=== PATIENT | male | born 1960 | race Caucasian/White ===

== ENCOUNTER 2017-01-04 19:16 | Emergency (ER) | payer OTHER ==
[~2017-01-04] VITALS: Ht 177.8 cm; Wt 82.9 kg
[~2017-01-04 19:16] MED LIST: GABAPENTIN100 MG PO; LORATADINE10 M2 PO; SIMVASTATIN20 MG PO; TRAZODONE HCL50 MG PO; WELLBUTRIN100 MG PO
[2017-01-04 19:43] LABS: BASOPHIL COUNT 0.1 K/uL (0-0.1); EOSINOPHIL (%) 4.1 % (0-5); EOSINOPHIL COUNT 0.4 K/uL (0-0.3); HEMATOCRIT 45.3 % (38.0-50.0); IMMATURE GRANULOCYTE (%) 0.3 % (0.0-0.7); INSTRUMENT ABS NEUTROPHIL CT 3.5 K/uL; LYMPHOCYTE COUNT 3.9 K/uL (1.0-2.8); MCH 32.2 PG (29.0-34.0); MCV 94.6 FL (86-99); MEAN PLAT.VOLUME 8.6 uM^3 (9.0-12.4); MONOCYTE (%) 8.9 % (3-12); MONOCYTE COUNT 0.8 K/uL (0-0.8); NEUTROPHIL (%) 40.9 % (45-76); NEUTROPHIL COUNT 3.5 K/uL (1.8-6.4); PLATELET COUNT 415 K/uL (156-360); RBC DIS.WIDTH-CV 12.8 % (11.8-14.6); RBC DIS.WIDTH-SD 44.8 % (39-53); RED BLOOD COUNT 4.79 M/uL (4.00-5.50); WHITE BLOOD COUNT 8.6 K/uL (4.1-10.2)
[2017-01-04 20:07] LABS: CHLORIDE 103 mEq/L (99-109); POTASSIUM 3.9 mEq/L (3.7-5.4); SODIUM 144 mEq/L (136-147)
[2017-01-04 20:08] LABS: AMYLASE 56 IU/L (1-118)
[2017-01-04 20:10] LABS: GLUCOSE 120 mg/dL (70-99)
[2017-01-04 20:11] LABS: ANION GAP 19 MEQ/L (2-14); TOTAL BILIRUBIN 0.4 mg/dL (0.0-1.0)
[2017-01-04 20:12] LABS: SERUM ETHYL ALCOHOL 329 mg/dL
[2017-01-04 20:13] LABS: ALKALINE PHOSPHATASE 87 IU/L (3-129); GFR ESTIMATE (CALCULATED) > 59 mL/min/
[2017-01-04 20:14] LABS: UREA NITROGEN (BUN) 6 mg/dL (9-23)
[2017-01-04 20:17] LABS: LIPASE 84 U/L (1.0-51.0)
[2017-01-05 05:52] VITALS: BP 124/89
== END 2017-01-05 06:00 | disposition home or self-care (01) ==
LOC: EME → EDBD 19:16 → EME 01-05 06:00
PROVIDERS: Emergency Medicine
PROC: 0HQEXZZ Repair Left Lower Arm Skin, External Approach (ICD-10-PCS; principal; 2017-01-04)
DX: S61.512A Laceration without foreign body of left wrist, initial encounter (principal); R51 Headache; M54.2 Cervicalgia; Y04.8XXA Assault by other bodily force, initial encounter; W10.9XXA Fall (on) (from) unspecified stairs and steps, initial encounter; F10.129 Alcohol abuse with intoxication, unspecified; R20.2 Paresthesia of skin; F17.200 Nicotine dependence, unspecified, uncomplicated; I25.2 Old myocardial infarction
CPT/HCPCS: 70450; 71010; 72125; 73100; 73120; 80053; 81003; 82150; 83690; 85025; 99281; 99285; G0480; J1630; J2060; J7030

== ENCOUNTER 2017-01-11 13:53 | Inpatient (IN) | payer OTHER ==
[~2017-01-11] VITALS: Ht 172.7 cm; Wt 84.0 kg
[2017-01-11 14:37] LABS: HEMATOCRIT 44.9 % (38.0-50.0); MCH 32.2 PG (29.0-34.0); MCHC 34.3 G/DL (30.0-36.0); MCV 93.9 FL (86-99); MEAN PLAT.VOLUME 8.7 uM^3 (9.0-12.4); PLATELET COUNT 337 K/uL (156-360); RBC DIS.WIDTH-CV 12.8 % (11.8-14.6); RBC DIS.WIDTH-SD 44.5 % (39-53); RED BLOOD COUNT 4.78 M/uL (4.00-5.50); WHITE BLOOD COUNT 14.3 K/uL (4.1-10.2)
[2017-01-11 14:46] LABS: CHLORIDE 98 mEq/L (99-109); POTASSIUM 3.2 mEq/L (3.7-5.4); SODIUM 141 mEq/L (136-147)
[2017-01-11 14:48] LABS: GLUCOSE 150 mg/dL (70-99)
[2017-01-11 14:49] LABS: ANION GAP 19 MEQ/L (2-14)
[2017-01-11 14:50] LABS: TOTAL BILIRUBIN 0.7 mg/dL (0.0-1.0)
[2017-01-11 14:51] LABS: ALKALINE PHOSPHATASE 80 IU/L (3-129)
[2017-01-11 14:52] LABS: GFR ESTIMATE (CALCULATED) > 59 mL/min/
[2017-01-11 14:53] LABS: UREA NITROGEN (BUN) 11 mg/dL (9-23)
[2017-01-11 14:55] LABS: LIPASE 863 U/L (1.0-51.0)
[2017-01-11 14:58] LABS: TROP-I INTERPRETATION NEGATIVE; TROPONIN-I 0.01 ng/mL (0.0-0.30)
[2017-01-11] MEDS ORDERED: ADVIL200 MG PO (17:04)
[2017-01-11] MEDS ORDERED: NEXIUM 24HR20 MG PO (17:05)
[2017-01-11] MEDS ORDERED: GAVISCON LIQUI355 ML PO (17:05)
[2017-01-11 17:35] LABS: ADD MIUA? NO; BILIRUBIN NEGATIVE; BLOOD NEGATIVE; COLOR YELLOW ((YELLOW)); GLUCOSE (STRIP) NEGATIVE; KETONES 20; LEUKOCYTES NEGATIVE; NITRITE NEGATIVE; PROTEIN (STRIP) 30; UCUL ADDED? NO
[2017-01-11 17:42] LABS: MAGNESIUM 2.1 mg/dL (1.3-2.7)
[2017-01-11 20:29] VITALS: BP 159/99
[2017-01-11 23:05] VITALS: BP 152/96
[2017-01-12] VITALS (7 sets, daily range): BP systolic 124–145; BP diastolic 81–94
[2017-01-12 06:40] LABS: HEMATOCRIT 39.8 % (38.0-50.0); MCHC 32.9 G/DL (30.0-36.0); MCV 97.1 FL (86-99); MEAN PLAT.VOLUME 8.7 uM^3 (9.0-12.4); PLATELET COUNT 296 K/uL (156-360); RBC DIS.WIDTH-CV 13.2 % (11.8-14.6); RBC DIS.WIDTH-SD 47.5 % (39-53); WHITE BLOOD COUNT 10.3 K/uL (4.1-10.2)
[2017-01-12 07:02] LABS: ALKALINE PHOSPHATASE 57 IU/L (3-129); ANION GAP 9 MEQ/L (2-14); CHLORIDE 104 MEQ/L (99-109); GFR ESTIMATE (CALCULATED) > 59 mL/min/; GLUCOSE 138 mg/dL (70-99); POTASSIUM 3.7 MEQ/L (3.7-5.4); SAMPLE HEMOLYSIS CHECK 0; SAMPLE ICTERIC CHECK 0; SAMPLE LIPEMIA CHECK 0; SODIUM 139 MEQ/L (136-147); UREA NITROGEN (BUN) 8 mg/dL (9-23)
[2017-01-13 06:42] LABS: HEMATOCRIT 38.5 % (38.0-50.0); MCH 32.7 PG (29.0-34.0); MCHC 33.2 G/DL (30.0-36.0); MCV 98.2 FL (86-99); PLATELET COUNT 244 K/uL (156-360); RBC DIS.WIDTH-CV 13.2 % (11.8-14.6); RBC DIS.WIDTH-SD 46.8 % (39-53); RED BLOOD COUNT 3.92 M/uL (4.00-5.50); WHITE BLOOD COUNT 12.2 K/uL (4.1-10.2)
[2017-01-13 07:09] LABS: ALKALINE PHOSPHATASE 56 IU/L (3-129); ANION GAP 10 MEQ/L (2-14); CHLORIDE 105 MEQ/L (99-109); GFR ESTIMATE (CALCULATED) > 59 mL/min/; GLUCOSE 132 mg/dL (70-99); POTASSIUM 3.9 MEQ/L (3.7-5.4); SAMPLE HEMOLYSIS CHECK 0; SAMPLE ICTERIC CHECK 0; SAMPLE LIPEMIA CHECK 0; SODIUM 138 MEQ/L (136-147); TOTAL BILIRUBIN 1.2 MG/DL (0.0-1.0); UREA NITROGEN (BUN) 5 mg/dL (9-23)
[2017-01-13 07:15] VITALS: BP 143/87
[2017-01-13 11:36] VITALS: BP 141/80
[2017-01-13 15:58] VITALS: BP 140/94
[2017-01-13 20:05] VITALS: BP 144/85
[2017-01-13 23:45] VITALS: BP 125/77
[2017-01-14 07:00] LABS: HEMATOCRIT 35.9 % (38.0-50.0); MCH 32.3 PG (29.0-34.0); MCHC 33.1 G/DL (30.0-36.0); MCV 97.6 FL (86-99); PLATELET COUNT 261 K/uL (156-360); RBC DIS.WIDTH-SD 46.4 % (39-53); RED BLOOD COUNT 3.68 M/uL (4.00-5.50); WHITE BLOOD COUNT 11.8 K/uL (4.1-10.2)
[2017-01-14 07:29] LABS: ALKALINE PHOSPHATASE 56 IU/L (3-129); ANION GAP 7 MEQ/L (2-14); CHLORIDE 107 MEQ/L (99-109); GFR ESTIMATE (CALCULATED) > 59 mL/min/; GLUCOSE 117 mg/dL (70-99); MAGNESIUM 2.1 mg/dl (1.3-2.7); POTASSIUM 3.8 MEQ/L (3.7-5.4); SAMPLE HEMOLYSIS CHECK 0; SAMPLE ICTERIC CHECK 0; SAMPLE LIPEMIA CHECK 0; SODIUM 138 MEQ/L (136-147); UREA NITROGEN (BUN) 5 mg/dL (9-23)
[2017-01-14 07:43] VITALS: BP 136/85
[2017-01-14 16:11] VITALS: BP 137/88
[2017-01-14 22:56] VITALS: BP 124/82
[2017-01-15 06:02] LABS: EOSINOPHIL COUNT 0.6 K/uL (0-0.3); HEMATOCRIT 36.3 % (38.0-50.0); IMMATURE GRANULOCYTE (%) 0.9 % (0.0-0.7); IMMATURE GRANULOCYTE COUNT 0.1 K/uL; INSTRUMENT ABS NEUTROPHIL CT 6.9 K/uL; LYMPHOCYTE COUNT 2.6 K/uL (1.0-2.8); MCH 33.7 PG (29.0-34.0); MCHC 34.4 G/DL (30.0-36.0); MCV 97.8 FL (86-99); MEAN PLAT.VOLUME 8.9 uM^3 (9.0-12.4); MONOCYTE (%) 11.5 % (3-12); MONOCYTE COUNT 1.3 K/uL (0-0.8); NEUTROPHIL (%) 59.8 % (45-76); NEUTROPHIL COUNT 6.9 K/uL (1.8-6.4); PLATELET COUNT 301 K/uL (156-360); RBC DIS.WIDTH-SD 46.8 % (39-53); RED BLOOD COUNT 3.71 M/uL (4.00-5.50); WHITE BLOOD COUNT 11.6 K/uL (4.1-10.2)
[2017-01-15 06:27] LABS: ANION GAP 8 MEQ/L (2-14); CHLORIDE 107 MEQ/L (99-109); GFR ESTIMATE (CALCULATED) > 59 mL/min/; GLUCOSE 112 mg/dL (70-99); POTASSIUM 4.2 MEQ/L (3.7-5.4); SAMPLE HEMOLYSIS CHECK 0; SAMPLE ICTERIC CHECK 0; SAMPLE LIPEMIA CHECK 0; SODIUM 139 MEQ/L (136-147); UREA NITROGEN (BUN) 6 mg/dL (9-23)
[2017-01-15 08:00] VITALS: BP 129/79
[2017-01-15] MEDS ORDERED: NICOTINE PATCH1 EAC2 TD (15:08)
[2017-01-15] MEDS ORDERED: FOLIC ACID1 MG PO (15:08)
[2017-01-15] MEDS ORDERED: MULTIVITAMIN1 EAC2 PO (15:09)
[2017-01-15] MEDS ORDERED: LIBRIUM25 MG PO (15:11)
[2017-01-15 15:46] VITALS: BP 115/77
== END 2017-01-15 17:40 | disposition home or self-care (01) | DRG 439 ==
LOC: EME 13:53 → 5EAST 16:35 → EDOF 16:35 → ENRESERV 16:39 → 5EAST 19:59
PROVIDERS: Internal Medicine; Nurse Practitioner Family; Student in an Organized Health Care Education/Training Program
DX: K85.20 Alcohol induced acute pancreatitis without necrosis or infection (principal); F17.200 Nicotine dependence, unspecified, uncomplicated; F10.230 Alcohol dependence with withdrawal, uncomplicated; E87.6 Hypokalemia; I10 Essential (primary) hypertension; M19.90 Unspecified osteoarthritis, unspecified site; F14.10 Cocaine abuse, uncomplicated; K76.0 Fatty (change of) liver, not elsewhere classified; R16.0 Hepatomegaly, not elsewhere classified
CPT/HCPCS: 74177; 80048; 80053; 81003; 82140; 82272; 83605; 83690; 83735; 84484; 85025; 85027; 87040; 93005; 99281; 99282; C9113; J1170; J2270; J2405; J3010; J3411; J7030

== ENCOUNTER → 2017-03-19 | Outpatient (CLI) | payer OTHER ==
[~2017-03-19] MED LIST changes: +ADVIL200 MG PO; +FOLIC ACID1 MG PO; +GAVISCON LIQUI355 ML PO; +LIBRIUM25 MG PO; +MULTIVITAMIN1 EAC2 PO; +NEXIUM 24HR20 MG PO; +NICOTINE PATCH1 EAC2 TD
== END | disposition home or self-care (01) ==
LOC: RAD 09:04
DX: Z02.71 Encounter for disability determination (principal); M16.0 Bilateral primary osteoarthritis of hip; M25.752 Osteophyte, left hip; M47.898 Other spondylosis, sacral and sacrococcygeal region
CPT/HCPCS: 73501

== ENCOUNTER 2017-07-04 10:04 | Inpatient (IN) | payer OTHER ==
[~2017-07-04] VITALS: Ht 172.7 cm; Wt 82.3 kg
[2017-07-04 11:39] LABS: HEMATOCRIT 49.1 % (38.0-50.0); HEMOGLOBIN 17.4 G/DL (12.5-16.6); MCH 34.9 PG (29.0-34.0); MCHC 35.4 G/DL (30.0-36.0); MCV 98.6 FL (86-99); PLATELET COUNT 318 K/uL (156-360); RBC DIS.WIDTH-CV 14.9 % (11.8-14.6); RBC DIS.WIDTH-SD 54.4 % (39-53); RED BLOOD COUNT 4.98 M/uL (4.00-5.50); WHITE BLOOD COUNT 14.6 K/uL (4.1-10.2)
[2017-07-04 11:47] LABS: ALBUMIN 4.1 g/dL (3.2-4.8); CHLORIDE 107 mEq/L (99-109); POTASSIUM 3.8 mEq/L (3.7-5.4); SODIUM 141 mEq/L (136-147)
[2017-07-04 11:49] LABS: GLUCOSE 161 mg/dL (70-99)
[2017-07-04 11:50] LABS: TOTAL PROTEIN 7.8 g/dL (6.4-8.3)
[2017-07-04 11:51] LABS: TOTAL BILIRUBIN 0.7 mg/dL (0.0-1.0)
[2017-07-04 11:52] LABS: SERUM ETHYL ALCOHOL 93 mg/dL
[2017-07-04 11:53] LABS: ALKALINE PHOSPHATASE 106 IU/L (3-129); CREATININE 0.7 mg/dL (0.6-1.3); GFR ESTIMATE (CALCULATED) > 59 mL/min/ (58.99-99999)
[2017-07-04 11:54] LABS: UREA NITROGEN (BUN) 6 mg/dL (9-23)
[2017-07-04 11:55] LABS: AST (GOT) 168 IU/L (2-34); DIRECT BILIRUBIN 0.4 mg/dL (0.0-0.3)
[2017-07-04 11:56] LABS: ALT (GPT) 108 IU/L (3-49)
[2017-07-04 11:57] LABS: LIPASE 862 U/L (1.0-51.0)
[2017-07-04] MEDS ORDERED: ZANTAC150 MG PO (14:08)
[2017-07-04] MEDS ORDERED: ADVIL PM1 TABLET PO (14:08)
[2017-07-04 14:53] LABS: MAGNESIUM 1.9 mg/dL (1.3-2.7)
[2017-07-04 17:10] LABS: APPEARANCE CLEAR ((CLEAR)); BILIRUBIN NEGATIVE; BLOOD NEGATIVE; COLOR YELLOW ((YELLOW)); GLUCOSE (STRIP) NEGATIVE; KETONES 20; LEUKOCYTES NEGATIVE; NITRITE NEGATIVE; PROTEIN (STRIP) NEGATIVE; UCUL ADDED? NO; UROBILINOGEN 0.2 MG/DL (0.2-1.0)
[2017-07-04 17:38] LABS: SPECIFIC GRAVITY 1.054 (1.000-1.030)
[2017-07-04 22:21] VITALS: BP 160/92
[2017-07-04 23:47] VITALS: BP 160/95
[2017-07-05 04:05] VITALS: BP 163/95
[2017-07-05 06:00] LABS: HEMATOCRIT 43.1 % (38.0-50.0); MCH 33.7 PG (29.0-34.0); MCHC 33.6 G/DL (30.0-36.0); MCV 100.2 FL (86-99); PLATELET COUNT 234 K/uL (156-360); RBC DIS.WIDTH-CV 15.1 % (11.8-14.6); RBC DIS.WIDTH-SD 56.1 % (39-53); WHITE BLOOD COUNT 14.1 K/uL (4.1-10.2)
[2017-07-05 06:02] LABS: HEMOGLOBIN 14.5 G/DL (12.5-16.6)
[2017-07-05 06:30] LABS: CHLORIDE 107 MEQ/L (99-109); CREATININE 0.5 MG/DL (0.6-1.3); GFR ESTIMATE (CALCULATED) > 59 mL/min/ (58.99-99999); GLUCOSE 133 mg/dL (70-99); POTASSIUM 3.4 MEQ/L (3.7-5.4); SODIUM 142 MEQ/L (136-147); UREA NITROGEN (BUN) 5 mg/dL (9-23)
[2017-07-05 07:16] VITALS: BP 144/99; BP 148/99; BP 157/100
[2017-07-05 10:01] LABS: ALBUMIN 3.1 G/DL (3.2-4.8); ALKALINE PHOSPHATASE 72 IU/L (3-129); ALT (GPT) 54 IU/L (3-49); AST (GOT) 57 IU/L (2-34); DIRECT BILIRUBIN 0.4 mg/dL (0.0-0.3); LIPASE 776 U/L (1.0-51.0); TOTAL PROTEIN 5.9 G/DL (6.4-8.3)
[2017-07-05 11:51] VITALS: BP 146/93
[2017-07-05 15:25] VITALS: BP 150/92
[2017-07-05 19:09] VITALS: BP 149/86
[2017-07-05 23:14] VITALS: BP 133/76
[2017-07-06 03:41] VITALS: BP 135/82
[2017-07-06 07:39] LABS: ALBUMIN 3.1 G/DL (3.2-4.8); ALKALINE PHOSPHATASE 75 IU/L (3-129); ALT (GPT) 38 IU/L (3-49); CHLORIDE 103 MEQ/L (99-109); CREATININE 0.6 MG/DL (0.6-1.3); GFR ESTIMATE (CALCULATED) > 59 mL/min/ (58.99-99999); GLUCOSE 118 mg/dL (70-99); POTASSIUM 3.3 MEQ/L (3.7-5.4); SODIUM 138 MEQ/L (136-147); UREA NITROGEN (BUN) 4 mg/dL (9-23)
[2017-07-06 07:48] LABS: AST (GOT) 28 IU/L (2-34); TOTAL BILIRUBIN 1.9 MG/DL (0.0-1.0)
[2017-07-06 07:57] VITALS: BP 163/97
[2017-07-06 11:54] VITALS: BP 148/96
[2017-07-06 15:36] VITALS: BP 143/95
== END 2017-07-06 19:59 | disposition left against medical advice (07) | DRG 439 ==
LOC: EME 10:04 → 3EAST 13:28 → EDOF 13:28 → ENRESERV 13:36 → CANRESERV 14:38 → ENRESERV 16:45 → 3EAST 21:47
PROVIDERS: Family Medicine; Internal Medicine
DX: K85.20 Alcohol induced acute pancreatitis without necrosis or infection (principal); E87.2 Acidosis; F10.229 Alcohol dependence with intoxication, unspecified; K76.9 Liver disease, unspecified; F17.210 Nicotine dependence, cigarettes, uncomplicated; I10 Essential (primary) hypertension; E87.6 Hypokalemia; K21.9 Gastro-esophageal reflux disease without esophagitis; I25.2 Old myocardial infarction; G89.29 Other chronic pain; E86.0 Dehydration
CPT/HCPCS: 74177; 76705; 80048; 80053; 80076; 81003; 82248; 83690; 83735; 85027; 99281; 99285; C9113; G0480; J1650; J2060; J2270; J2405; J2765; J3411; J7030; J7042

== ENCOUNTER 2017-12-15 08:15 | Inpatient (IN) | payer OTHER ==
[~2017-12-15] VITALS: Ht 172.7 cm; Wt 82.7 kg
[~2017-12-15 08:15] MED LIST changes: +TYLENOL PM EX-1 EACH PO; +ZANTAC150 MG PO
[2017-12-15 09:01] LABS: HEMATOCRIT 46.3 % (38.0-50.0); HEMOGLOBIN 16.5 G/DL (12.5-16.6); MCHC 35.6 G/DL (30.0-36.0); MCV 98.3 FL (86-99); PLATELET COUNT 362 K/uL (156-360); RBC DIS.WIDTH-SD 47.6 % (39-53); RED BLOOD COUNT 4.71 M/uL (4.00-5.50); WHITE BLOOD COUNT 11.2 K/uL (4.1-10.2)
[2017-12-15 09:41] LABS: ALBUMIN 3.9 G/DL (3.2-4.8); ALKALINE PHOSPHATASE 77 IU/L (3-129); ALT (GPT) 49 IU/L (3-49); AST (GOT) 77 IU/L (2-34); CHLORIDE 104 MEQ/L (99-109); CREATININE 0.6 MG/DL (0.6-1.3); GFR ESTIMATE (CALCULATED) > 59 mL/min/ (58.99-99999); GLUCOSE 149 mg/dL (70-99); LIPASE 1005 U/L (1.0-51.0); POTASSIUM 3.7 MEQ/L (3.7-5.4); SODIUM 141 MEQ/L (136-147); TOTAL BILIRUBIN 0.5 MG/DL (0.0-1.0); TOTAL PROTEIN 7.3 G/DL (6.4-8.3); UREA NITROGEN (BUN) 10 mg/dL (9-23)
[2017-12-15] MEDS ORDERED: ADVIL200 MG PO (10:32)
[2017-12-15] MEDS ORDERED: TYLENOL REGULA325 MG PO (10:32)
[2017-12-15 11:50] VITALS: BP 136/83
[2017-12-15 12:01] LABS: MAGNESIUM 1.8 mg/dl (1.3-2.7)
[2017-12-15 16:22] VITALS: BP 163/94
[2017-12-15 18:05] LABS: APPEARANCE CLEAR ((CLEAR)); BILIRUBIN NEGATIVE; BLOOD NEGATIVE; COLOR YELLOW ((YELLOW)); GLUCOSE (STRIP) NEGATIVE; KETONES 20; LEUKOCYTES NEGATIVE; NITRITE NEGATIVE; PROTEIN (STRIP) NEGATIVE; SPECIFIC GRAVITY 1.017 (1.000-1.030); UCUL ADDED? NO; UROBILINOGEN 0.2 MG/DL (0.2-1.0)
[2017-12-15 23:13] VITALS: BP 158/97
[2017-12-16 04:14] VITALS: BP 140/87
[2017-12-16 06:26] LABS: BASOPHIL (%) 0.3 % (0-1); EOSINOPHIL (%) 0.6 % (0-5); EOSINOPHIL COUNT 0.1 K/uL (0-0.3); HEMATOCRIT 40.3 % (38.0-50.0); IMMATURE GRANULOCYTE (%) 0.5 % (0.0-0.7); LYMPHOCYTE (%) 14.2 % (15-42); LYMPHOCYTE COUNT 1.8 K/uL (1.0-2.8); MCH 35.3 PG (29.0-34.0); MCV 100.8 FL (86-99); MONOCYTE (%) 8.7 % (3-12); MONOCYTE COUNT 1.1 K/uL (0-0.8); NEUTROPHIL (%) 75.7 % (45-76); NEUTROPHIL COUNT 9.7 K/uL (1.8-6.4); PLATELET COUNT 278 K/uL (156-360); RBC DIS.WIDTH-CV 13.2 % (11.8-14.6); RBC DIS.WIDTH-SD 49.3 % (39-53); WHITE BLOOD COUNT 12.9 K/uL (4.1-10.2)
[2017-12-16 06:28] LABS: HEMOGLOBIN 14.1 G/DL (12.5-16.6)
[2017-12-16 06:37] LABS: ALBUMIN 3.3 G/DL (3.2-4.8); ALKALINE PHOSPHATASE 58 IU/L (3-129); ALT (GPT) 30 IU/L (3-49); CHLORIDE 102 MEQ/L (99-109); CREATININE 0.5 MG/DL (0.6-1.3); GFR ESTIMATE (CALCULATED) > 59 mL/min/ (58.99-99999); LIPASE 452 U/L (1.0-51.0); POTASSIUM 3.6 MEQ/L (3.7-5.4); SODIUM 138 MEQ/L (136-147); UREA NITROGEN (BUN) 5 mg/dL (9-23)
[2017-12-16 06:44] LABS: AST (GOT) 33 IU/L (2-34); GLUCOSE 99 mg/dL (70-99); TOTAL PROTEIN 5.6 G/DL (6.4-8.3)
[2017-12-16 07:32] VITALS: BP 135/89
[2017-12-16 11:24] LABS: MAGNESIUM 1.5 mg/dl (1.3-2.7)
[2017-12-16 15:45] VITALS: BP 142/92
[2017-12-16 23:43] VITALS: BP 130/84
[2017-12-17 05:58] LABS: HEMATOCRIT 40.3 % (38.0-50.0); HEMOGLOBIN 13.9 G/DL (12.5-16.6); MCH 34.8 PG (29.0-34.0); MCHC 34.5 G/DL (30.0-36.0); PLATELET COUNT 249 K/uL (156-360); RBC DIS.WIDTH-CV 13.2 % (11.8-14.6); RBC DIS.WIDTH-SD 49.7 % (39-53); RED BLOOD COUNT 3.99 M/uL (4.00-5.50); WHITE BLOOD COUNT 12.1 K/uL (4.1-10.2)
[2017-12-17 06:17] LABS: ALBUMIN 3.1 G/DL (3.2-4.8); ALKALINE PHOSPHATASE 58 IU/L (3-129); ALT (GPT) 20 IU/L (3-49); AST (GOT) 20 IU/L (2-34); CHLORIDE 100 MEQ/L (99-109); CREATININE 0.6 MG/DL (0.6-1.3); GFR ESTIMATE (CALCULATED) > 59 mL/min/ (58.99-99999); GLUCOSE 104 mg/dL (70-99); LIPASE 66 U/L (1.0-51.0); POTASSIUM 3.7 MEQ/L (3.7-5.4); SODIUM 137 MEQ/L (136-147); TOTAL PROTEIN 5.6 G/DL (6.4-8.3); UREA NITROGEN (BUN) 4 mg/dL (9-23)
[2017-12-17 06:19] LABS: TOTAL BILIRUBIN 1.5 MG/DL (0.0-1.0)
[2017-12-17 08:03] VITALS: BP 137/86
[2017-12-17 10:35] LABS: MAGNESIUM 1.7 mg/dl (1.3-2.7)
[2017-12-17 16:19] VITALS: BP 151/89
[2017-12-17 23:51] VITALS: BP 123/84
[2017-12-18 06:18] LABS: BASOPHIL (%) 0.4 % (0-1); BASOPHIL COUNT 0.1 K/uL (0-0.1); EOSINOPHIL COUNT 0.5 K/uL (0-0.3); HEMATOCRIT 37.7 % (38.0-50.0); HEMOGLOBIN 12.9 G/DL (12.5-16.6); IMMATURE GRANULOCYTE (%) 0.6 % (0.0-0.7); LYMPHOCYTE (%) 22.7 % (15-42); LYMPHOCYTE COUNT 2.8 K/uL (1.0-2.8); MCH 34.3 PG (29.0-34.0); MCHC 34.2 G/DL (30.0-36.0); MCV 100.3 FL (86-99); MONOCYTE (%) 9.5 % (3-12); MONOCYTE COUNT 1.2 K/uL (0-0.8); NEUTROPHIL (%) 62.8 % (45-76); NEUTROPHIL COUNT 7.8 K/uL (1.8-6.4); PLATELET COUNT 274 K/uL (156-360); RBC DIS.WIDTH-SD 47.9 % (39-53); RED BLOOD COUNT 3.76 M/uL (4.00-5.50); WHITE BLOOD COUNT 12.4 K/uL (4.1-10.2)
[2017-12-18 06:39] LABS: ALKALINE PHOSPHATASE 60 IU/L (3-129); ALT (GPT) 15 IU/L (3-49); AST (GOT) 13 IU/L (2-34); CHLORIDE 99 MEQ/L (99-109); CREATININE 0.5 MG/DL (0.6-1.3); GFR ESTIMATE (CALCULATED) > 59 mL/min/ (58.99-99999); GLUCOSE 106 mg/dL (70-99); POTASSIUM 3.4 MEQ/L (3.7-5.4); SODIUM 138 MEQ/L (136-147); TOTAL BILIRUBIN 1.3 MG/DL (0.0-1.0); TOTAL PROTEIN 5.3 G/DL (6.4-8.3); UREA NITROGEN (BUN) 7 mg/dL (9-23)
[2017-12-18 06:55] VITALS: BP 126/78
[2017-12-18 15:25] VITALS: BP 140/88
[2017-12-18 23:34] VITALS: BP 141/94
[2017-12-19 06:12] LABS: BASOPHIL (%) 0.4 % (0-1); EOSINOPHIL (%) 4.7 % (0-5); EOSINOPHIL COUNT 0.5 K/uL (0-0.3); HEMATOCRIT 38.4 % (38.0-50.0); HEMOGLOBIN 13.2 G/DL (12.5-16.6); IMMATURE GRANULOCYTE (%) 0.5 % (0.0-0.7); LYMPHOCYTE (%) 22.2 % (15-42); LYMPHOCYTE COUNT 2.4 K/uL (1.0-2.8); MCH 34.5 PG (29.0-34.0); MCHC 34.4 G/DL (30.0-36.0); MCV 100.3 FL (86-99); MONOCYTE (%) 11.3 % (3-12); MONOCYTE COUNT 1.2 K/uL (0-0.8); NEUTROPHIL (%) 60.9 % (45-76); NEUTROPHIL COUNT 6.7 K/uL (1.8-6.4); PLATELET COUNT 307 K/uL (156-360); RBC DIS.WIDTH-CV 12.8 % (11.8-14.6); RBC DIS.WIDTH-SD 46.9 % (39-53); RED BLOOD COUNT 3.83 M/uL (4.00-5.50)
[2017-12-19 06:33] LABS: CHLORIDE 101 MEQ/L (99-109); CREATININE 0.6 MG/DL (0.6-1.3); GFR ESTIMATE (CALCULATED) > 59 mL/min/ (58.99-99999); GLUCOSE 114 mg/dL (70-99); LIPASE 158 U/L (1.0-51.0); POTASSIUM 3.8 MEQ/L (3.7-5.4); SODIUM 138 MEQ/L (136-147); UREA NITROGEN (BUN) 6 mg/dL (9-23)
[2017-12-19 07:06] VITALS: BP 133/83
[2017-12-19] MEDS ORDERED: FOLIC ACID1 MG PO (11:29)
[2017-12-19] MEDS ORDERED: PANTOPRAZOLE SO40 MG PO (11:29)
[2017-12-19] MEDS ORDERED: Thiamine,Vitamin B1 PO (11:29)
== END 2017-12-19 12:09 | disposition home or self-care (01) | DRG 439 ==
LOC: EME 08:15 → 5EAST 10:45 → EDOF 10:45 → CANRESERV 10:47 → ENRESERV 10:47 → 5EAST 11:34 → ENRESERV 12-17 19:31 → 5EAST 12-17 20:10
PROVIDERS: Emergency Medicine; Hospitalist; Internal Medicine; Internal Medicine Gastroenterology
DX: K85.20 Alcohol induced acute pancreatitis without necrosis or infection (principal); F10.229 Alcohol dependence with intoxication, unspecified; F17.210 Nicotine dependence, cigarettes, uncomplicated; K76.6 Portal hypertension; F31.9 Bipolar disorder, unspecified; R74.0 Nonspecific elevation of levels of transaminase and lactic acid dehydrogenase [LDH]; E87.2 Acidosis; E86.0 Dehydration; K76.0 Fatty (change of) liver, not elsewhere classified; E87.6 Hypokalemia; E83.42 Hypomagnesemia; K29.80 Duodenitis without bleeding; K59.00 Constipation, unspecified; I25.2 Old myocardial infarction
CPT/HCPCS: 71045; 74176; 80048; 80053; 81003; 82140; 83690; 83735; 85025; 85027; 93005; 99281; 99285; C9113; J1170; J1650; J2405; J3010; J3411; J3475; J7030; J7120